=== PATIENT | female | born 1955 | race Two or more races ===

== ENCOUNTER 2018-12-29 10:38 | Emergency (ER) | payer OTHER ==
[~2018-12-29] VITALS: Ht 167.6 cm; Wt 101.2 kg
[2018-12-29 10:53] VITALS: BP 135/83
== END 2018-12-29 12:26 | disposition home or self-care (01) ==
LOC: ER 10:38
DX: J20.9 Acute bronchitis, unspecified (principal)
CPT/HCPCS: 71046

== ENCOUNTER 2025-06-26 08:41 | Outpatient (CLI) | payer OTHER ==
[~2025-06-26] VITALS: Ht 167.6 cm; Wt 74.8 kg
[2025-06-26] VITALS (8 sets, daily range): BP systolic 152–171; BP diastolic 79–88; PULSE 54–60; RESP 14–17; TEMP 98.3; O2SAT 98–100
[~2025-06-26 08:41] MED LIST: ALPR0.25 PO; AMIO200T33 PO; APIX2.5T PO; DAPA1TAB4 PO; FURO1TAB33 PO; HYDR25TA88 PO; IPRAAER6 IN; IPRIH INH; METO25TA5 PO; ONDA-155 PO; SACU1TAB PO; SERT25TA84 PO; SEVE800T8 PO; TRAM50TA2 PO
[2025-06-26] MEDS ORDERED: LIDOCAINE 2%HCL (LOCAL ANESTH.) INJ 20ML MDV ONE (09:27)
--- NOTE | 2025-06-26 10:10 | DVH ---
INDICATION:s/p Bedside HD Cath Removal from RT upper chest TECHNIQUE: Frontal view of the chest. COMPARISON: None. FINDINGS: Left-sided pacemaker/AICD. The heart and mediastinal contours are grossly unremarkable. There is no evidence of pleural disease. The lungs are clear. The bony structures of the chest are intact with out fracture. IMPRESSION: 1. No evidence of acute disease. Removal of HD catheter.
--- NOTE | 2025-06-26 13:30 | DVH ---
PROCEDURE: Tunneled central venous catheter removal Procedural Personnel Attending physician(s): Bridger Quezada Fellow physician(s): None Resident physician(s): None Advanced practice provider(s): None Pre-procedure diagnosis: ESRD Post-procedure diagnosis: Same Indication: Catheter no longer needed Additional clinical history: Functioning peritoneal dialysis catheter Complications: No immediate complications. IMPRESSION: Removal of right -sided tunneled dialysis catheter. Plan: Please re-consult interventional radiology if new catheter placement is desired. PROCEDURE SUMMARY: - Tunneled central venous catheter removal - Additional procedure(s): None PROCEDURE DETAILS: Pre-procedure Consent: Informed consent for the procedure including risks, benefits and alternatives was obtained a nd time-out was performed prior to the procedure. Preparation: The site was prepared and draped using maximal sterile barrier technique including cutan eous antisepsis. Anesthesia/sedation Level of anesthesia/sedation: No sedation Anesthesia/sedation administered by: Not applicable Total intra-service sedation time (minutes): 0 Catheter removal Local anesthesia was administered. The catheter was removed with a combination of traction and blunt dissection . Post procedural chest x ray was obtained to document removal. Closure Hemostasis was achieved with manual compression. Sterile dressing(s) applied. Contrast Contrast agent: None Contrast volume (mL): 0 Radiation Dose NA Additional Details Additional description of procedure: None Registry event: Z /3 /f Device used: None Equipment details: None Specimens removed: Tunneled central venous catheter. Estimated blood loss (mL): Less than 10 Standardized report: [email or web address] Attestation Signer name: Bridger Quezada I attest that I was present for the entire procedure . I reviewed the stored images and agree with th e report as written.
== END 2025-06-26 17:00 | disposition home or self-care (01) ==
LOC: CATH 08:41
PROVIDERS: ATTEND Radiology Diagnostic Radiology
DX: N18.6 End stage renal disease (principal); Z79.899 Other long term (current) drug therapy; Z87.01 Personal history of pneumonia (recurrent); Z98.51 Tubal ligation status; Z90.710 Acquired absence of both cervix and uterus; Z98.890 Other specified postprocedural states; Z88.5 Allergy status to narcotic agent; Z88.8 Allergy status to other drugs, medicaments and biological substances; Z91.011 Allergy to milk products
CPT/HCPCS: 36589; 71045; J7040; 77002